=== PATIENT | female | born 1970 | race American Indian/Alaskan Native ===

== ENCOUNTER 2022-06-02 11:46 | Emergency (ER) | payer SELFPAY ==
[2022-06-02 12:32] VITALS: BP 160/91
[2022-06-02 14:43] LABS: Hematocrit 34.4 % (30.3-42.9); Hemoglobin 10.5 gm/dl (10.1-14.3); Mean Corpuscular HGB Conc 31 % (30-34); Platelet Count 493 K/mm3 (140-440); Red Blood Count 5.34 M/mm3 (3.65-5.03); Red Cell Distribution Width 17.5 % (13.2-15.2)
[2022-06-02 14:54] LABS: Alanine Aminotransferase 28 units/L (7-56); Albumin 3.5 g/dL (3.9-5); Blood Urea Nitrogen 11 mg/dL (7-17); Calcium 9.7 mg/dL (8.4-10.2); Hemolysis Index 0
[2022-06-02 15:11] LABS: Mean Corpuscular Volume 64 fl (79-97)
[2022-06-02 15:25] LABS: BUN/Creatinine Ratio 37
== END 2022-06-03 00:26 | disposition left against medical advice (07) ==
LOC: ED 11:46
DX: M79.89 Other specified soft tissue disorders (principal); Z53.21 Procedure and treatment not carried out due to patient leaving prior to being seen by health care provider
CPT/HCPCS: 36415; 80053; 83690; 83880; 84484; 85027

== ENCOUNTER 2022-06-03 20:09 | Emergency (ER) | payer SELFPAY ==
[2022-06-03 21:08] LABS: Alanine Aminotransferase 25 units/L (7-56); Albumin 3.2 g/dL (3.9-5); Blood Urea Nitrogen 9 mg/dL (7-17); Calcium 9.2 mg/dL (8.4-10.2); Hemolysis Index 6
[2022-06-03 21:09] LABS: BUN/Creatinine Ratio 30
--- NOTE | 2022-06-03 21:10 | XRay Report ---
CHEST 2 VIEWS INDICATION / CLINICAL INFORMATION: Chest Pain. FINDINGS: SUPPORT DEVICES: None. HEART / MEDIASTINUM: No significant abnormality. LUNGS / PLEURA: No significant pulmonary or pleural abnormality. No pneumothorax. ADDITIONAL FINDINGS: No significant additional findings. IMPRESSION: 1. No acute findings. Signer Name: Ulices Wiggins MD Signed: 06/03/2022 9:06 PM Workstation Name: [id number]
[2022-06-03 21:16] LABS: Basophils # (Auto) 0.1 K/mm3 (0.0-0.1); Basophils % (Auto) 0.3 % (0.0-1.8); Hematocrit 29.9 % (30.3-42.9); Hemoglobin 9.6 gm/dl (10.1-14.3); Lymphocytes # (Auto) 2.5 K/mm3 (1.2-5.4); Lymphocytes % (Auto) 14.6 % (13.4-35.0); Mean Corpuscular HGB Conc 32 % (30-34); Monocytes # (Auto) 0.8 K/mm3 (0.0-0.8); Monocytes % (Auto) 4.7 % (0.0-7.3); Platelet Count 474 K/mm3 (140-440); Red Blood Count 4.65 M/mm3 (3.65-5.03)
[2022-06-03 21:26] LABS: INR 1.09 (0.87-1.13)
[2022-06-03 21:27] LABS: Partial Thromboplastin Time 32.2 Sec. (24.2-36.6)
[2022-06-03 21:32] LABS: Mean Corpuscular Volume 64 fl (79-97)
== END 2022-06-04 06:10 | disposition left against medical advice (07) ==
LOC: ED 20:09
DX: R07.9 Chest pain, unspecified (principal); Z53.21 Procedure and treatment not carried out due to patient leaving prior to being seen by health care provider
CPT/HCPCS: 36415; 71046; 80053; 83880; 84484; 85025; 85610; 85730; 93005